=== PATIENT | female | born 2000 | race Caucasian/White ===

== ENCOUNTER 2022-01-29 19:23 | Emergency (ER) | payer OTHER ==
[~2022-01-29] VITALS: Ht 160 cm; Wt 70.3 kg
--- NOTE | 2022-01-29 19:41 | NUR ---
PT bibself c/o abd pain [id number]. HX STI.
--- NOTE | 2022-01-29 19:42 | NUR ---
Patient left without being seen by ER Physician. DR CHRISTIE LANDAVERDE AWARE. pt ambulatory with a steady gait
[2022-01-29 19:43] VITALS: BP 130/82
== END 2022-01-29 19:43 | disposition left against medical advice (07) ==
LOC: ER 19:31
DX: Z53.21 Procedure and treatment not carried out due to patient leaving prior to being seen by health care provider (principal)